=== PATIENT | male | born 1955 | race Two or more races ===

== ENCOUNTER 2025-03-17 14:49 | Emergency (ER) | payer MEDICARE, SELFPAY ==
[2025-03-17 14:50] VITALS: BP 144/94; PULSE 87; RESP 16; TEMP 36.6; O2SAT 97
--- NOTE | 2025-03-17 16:01 | ED.GENADUL_ITS ---
Discharge Plan Disposition Patient Disposition: Home Condition: Stable Discharge Details Clinical Impression: Laceration of left index finger Primary Care Provider: None,None ED Provider: Navarro Brannon Home Meds and New Rx's Prescriptions: No Action No Known Home Meds Discharge Instructions Instructions: Taking care of cuts, scrapes, and puncture wounds Additional Instructions: You were seen in the emergency department for the laceration to your left index finger from a power tool saw, and is fairly irregular and would not be amenable to suture repair, is not actively bleeding. Due to the nature and appearance of the wound the ideal way to repair this is by Steri-Strips, these are semipermanent Band-Aids that will fall off in about 2 weeks, do not submerge your hand in water for prolonged periods of time of brief handwashing is fine, if sent you with extras in case they fall off as the palms of the hand sweats. Please use any antibiotic [id number] ointment for the first 3 days with daily bandage changes and then keep the area clean and dry and covered with a new bandage each day until healed. Please watch for signs of infection like red streaking up the hand and arm, swelling, drainage of pus from the area, fever and return to the emergency department for any of these. We did update your tetanus shot today. Discharge Data Discharge Date/Time-TO BE ENTERED AT DEPARTURE: 03/17/25 16:31 HPI General Date/Time Provider Initiated Documentation: 03/17/25 15:52 . HPI Narrative: 69 year-old male presents to ED today by POV/ambulating with a chief complaint of L index finger laceration on a power saw with onset this morning. Quality described as not overly painful, bleeding controlled, no radiation to numbness distally, inability to move finger, other trauma. Severity is described as mild. Palliating factors include put turmeric on the wound, and wrapped with bandage. Provoking factors include nothing specific. Events leading up to the incident/Associated Symptoms: Patient is R-hand dominant. Patient not anticoagulated. Related Data Home Medications ?Medication ?Instructions ?Recorded ?Confirmed Unknown [No Known Home Meds] 03/17/25 03/17/25 Allergies Allergy/AdvReac Type Severity Reaction Status Date / Time No Known Allergies Allergy Verified 03/17/25 14:57 General Stated Complaint: Laceration [place]: 4 Review of Systems All systems reviewed & are unremarkable except as noted in HPI and below Exam Narrative Exam Narrative: GENERAL APPEARANCE: Well-nourished, non-toxic, awake and alert, atraumatic, no acute distress. SKIN: Warm, pink, dry, 1 cm irregular laceration to palmar aspect of PIP area of left index finger, sensation and capillary refill intact distally, left radial pulse 2+, no range of motion deficit, no tendon visualized, wound has an orange appearance due to application of turmeric by the patient HEAD: Normocephalic, atraumatic, normal hair distribution for gender/age. EYES: Normal conjunctiva, no exudates on lids/lashes. ENT: Nares patent, no circumoral cyanosis, no facial swelling NECK: Supple, trachea midline, painless cervical ROM. LUNGS/CHEST: Non-labored respirations, normal A/P diameter, symmetrical expansion, no chest wall deformity HEART (CV/PV): Regular rate, no peripheral edema, no JVD. ABDOMEN: Soft, non-distended, no guarding. MSK: Normal ROM, no swelling/deformity to bilateral UEs or LEs, moving all extremities without weakness, no cyanosis, spine midline without tenderness, normal curvature. NEURO: Mental Status AAOx4 - alert to person, place, time, events No facial droop, no forehead involvement. Motor: No focal weakness - strength 5/5 in bilateral UEs and LEs, proximal and distal, symmetric. Sensory: sensation intact to light touch globally. Gait normal: patient ambulated without ataxia into ED room. PSYCH: euthymic, cooperative, pleasant, appropriate speech Course Vital Signs Vital signs: Vital Signs Temperature 36.6 C 03/17/25 14:50 Pulse 87 03/17/25 14:50 Respiratory Rate 03/17/25 14:50 Blood Pressure 144/94 H 03/17/25 14:50 Pulse Oximetry 97 03/17/25 14:50 Temperature 36.6 C 03/17/25 14:50 Temperature Source Skin 03/17/25 14:50 Pulse 87 03/17/25 14:50 Respiratory Rate 16 03/17/25 14:50 Blood Pressure 144/94 H 03/17/25 14:50 Blood Pressure Position Sitting 03/17/25 14:50 Pulse Oximetry 97 03/17/25 14:50 Oxygen Delivery Method Room Air 03/17/25 14:50 Oxygen Flow Rate 0 03/17/25 14:50 Pain Level 0 03/17/25 14:50 Procedure Laceration Laceration 1: Patient Consented: Verbally Description: irregular and clean Depth: simple, single layer Pre-repair:: irrigated extensively Suture size: other (steri-strip x2) Complications: None Medical Decision Making This dictation utilizes [id number] dictation software and may contain unedited grammatical errors. 69 year-old male presents to ED today by POV/ambulating with a chief complaint of L index finger laceration on a power saw with onset this morning. Quality described as not overly painful, bleeding controlled, no radiation to numbness distally, inability to move finger, other trauma. Severity is described as mild. Palliating factors include put turmeric on the wound, and wrapped with bandage. Provoking factors include nothing specific. Events leading up to the incident/Associated Symptoms: Patient is R-hand dominant. Patients' medical history: negative, otherwise healthy. Family and social history: noncontributory. Pertinent exam findings / vital signs include 1 cm irregular laceration to palmar aspect of PIP area of left index finger, sensation and capillary refill intact distally, left radial pulse 2+, no range of motion deficit, no tendon visualized, wound has an orange appearance due to application of turmeric by the patient. Differential / pathologies of concern include laceration. Diagnostic studies of: -none. Interventions of: -Tdap updated, steri-strip repair. ED Course/Assessment/Plan: 69-year-old male cut palmar aspect of his left index finger on a power saw, the wound is irregular, not amenable to suture repair due to the irregularity caused by the saw, there is no range of motion deficit he is neurovascularly intact distal, wound is clean, I applied 2 Steri-Strips across the wound for gentle traction and keeping the wound together, stressed application of Neosporin for the first 2 to 3 days with daily dressing changes, return for any signs of infection including increase in pain swelling redness or drainage of pus from area, tetanus updated. Findings not consistent with tendon rupture, grossly contaminated wound. Disposition of laceration of left index finger. Patient verbalized understanding of the plan and return to ED criteria and engaged in shared decision making. Medical Records Medical records reviewed: Yes I reviewed the patient's medical records. Quality:SDCT Health Related Social Needs: No Data to Display PFSH All Active Problems (Updated 03/17/25 @ 16:03 by JESUS MANUEL Cummins) Laceration of left index finger (Acute) Social History Smoking/Tobacco Use Status: Never Smoking risk assessment performed?: Yes Alcohol Intake: never Drug use: Never Substance use type: does not use Do you feel safe at home: Yes Do you feel safe in your relationship?: Yes
[2025-03-17] MEDS: Diph,Pertuss(Acell),Tet Vac/Pf 0.5 ML SYR IM (16:16)
[2025-03-17 16:31] VITALS: BP 168/88; PULSE 62; RESP 18; O2SAT 99
== END 2025-03-17 16:31 | disposition home or self-care (01) ==
PROVIDERS: Emergency Provider Physician Assistant
DX: S61.211A Laceration without foreign body of left index finger without damage to nail, initial encounter (principal); W26.8XXA Contact with other sharp object(s), not elsewhere classified, initial encounter; Z23 Encounter for immunization
CPT/HCPCS: 99283; 99284; 90471; 90715